=== PATIENT | male | born 1960 | race Caucasian/White ===

== ENCOUNTER 2023-10-13 08:20 | Outpatient (CLI) | payer BC ==
[2023-10-13 10:12] LABS: #Basophils 0.1 10x3/uL (0.0-0.2); #Eosinphils 0.2 10x3/uL (0.0-0.5); #Monocytes 0.6 10x3/uL (0.0-1.1); #Neutrophils 3.2 10x3/uL (1.5-8.4); %Basophils 1.1 % (0.0-2.0); %Lymphocytes 35.3 % (18.0-47.0); %Monocytes 9.6 % (0.0-10.0); %Neutrophils 50.7 % (40.0-75.0); Hematocrit 42.7 % (38.8-50.0); Hemoglobin 14.6 g/dL (13.5-17.5); Mean Corpuscular HGB CONC 34.2 g/dL (32.0-36.0); Mean Corpuscular Hemoglobin 30.7 pg (27.0-33.0); Mean Corpuscular Volume 89.7 fl (81.2-95.1); Mean Platelet Volume 9.6 fl (7.4-10.4); Platelet Count 242 10x3/uL (150-450); RBC Distribution Width 13.1 % (11.5-14.5); Red Blood Cell (RBC) Count 4.76 10x6/uL (4.32-5.72); White Blood Cell (WBC) Count 6.2 10x3/uL (3.5-10.5)
[2023-10-13 10:14] LABS: ALT (SGPT) 29 U/L (8-55); AST (SGOT) 32 U/L (5-34); Albumin 4.1 g/dL (3.4-4.8); Alkaline Phosphatase 82 U/L (40-110); Anion Gap 14 mmol/L (10-20); BUN (Urea Nitrogen) 14 mg/dL (8.4-25.7); Bilirubin, Total 0.4 mg/dL (0.2-1.2); Calc. Creatinine Clearance 0 mL/min (70-130); Calcium 9.1 mg/dL (7.8-10.44); Carbon Dioxide 21 mmol/L (23-31); Chloride 107 mmol/L (98-107); Estimated GFR 97; Globulin 2.3 g/dL (2.4-3.5); Glucose 170 mg/dL (80-115); Potassium 4.4 mmol/L (3.5-5.1); Protein, Total 6.4 g/dL (5.8-8.1); Sodium 138 mmol/L (136-145)
== END 2023-10-13 08:21 | disposition home or self-care (01) ==
LOC: LABBT 08:20
PROVIDERS: ATTEND Surgery
DX: Z01.818 Encounter for other preprocedural examination (principal); K42.9 Umbilical hernia without obstruction or gangrene
CPT/HCPCS: 80053; 85025; 93005; 93010

== ENCOUNTER 2023-10-20 06:45 | Day surgery (SDC) | payer BC ==
[2023-10-13 08:42] VITALS: BMI 38.5
[2023-10-20] MEDS ORDERED: CEFAZOLIN 2 GM VIAL ONE (08:11)
[2023-10-20] MEDS ORDERED: Sodium Chloride 0.9% 100 ML ONE (08:11)
[2023-10-20] MEDS ORDERED: Lidocaine 1% MPF 2 ML VIAL ONE (08:11)
[2023-10-20] MEDS ORDERED: Bupivacaine PF 0.5% 30 ML VIAL ONE (09:09)
[2023-10-20] MEDS ORDERED: EPINEPHrine 1 MG/ML VIAL ONE (09:09)
[2023-10-20] MEDS ORDERED: PROPOFOL 20 ML ONE (09:12)
[2023-10-20] MEDS ORDERED: fentaNYL PF 100 MCG/2 ML SYRINGE ONE (09:12)
[2023-10-20] MEDS ORDERED: Lidocaine 1% PF 5 ML VIAL ONE ×2 (09:12→10:05)
[2023-10-20] MEDS ORDERED: Rocuronium Bromide 10 MG/ML (10ML VIAL) ONE ×2 (09:12→10:05)
[2023-10-20] MEDS ORDERED: Midazolam HCl 2 mg/2 ml Vial ONE (09:47)
[2023-10-20] MEDS ORDERED: PROPOFOL 200 MG/20 ML VIAL ONE (10:05)
[2023-10-20] MEDS ORDERED: Ondansetron PF 4 MG/2 ML Vial ONE ×2 (10:05→10:29)
[2023-10-20] MEDS ORDERED: Dexamethasone 20 MG/5 ML VIAL ONE (10:05)
[2023-10-20] MEDS ORDERED: ePHEDrine Sulfate 50 MG/10 ML VIAL ONE ×2 (10:05→10:20)
[2023-10-20] MEDS ORDERED: Ketorolac Tromethamine 30 MG/ML VIAL ONE ×2 (10:05→10:29)
[2023-10-20] MEDS ORDERED: Dexamethasone 4 mg/ml Vial ONE (10:29)
[2023-10-20] MEDS ORDERED: SUGAMMADEX SODIUM 200 MG/2 ML VIAL ONE (10:37)
[2023-10-20] MEDS ORDERED: fentaNYL 50 mcg/mL 1 mL Vial ONE ×2 (11:12→11:26)
[2023-10-20] MEDS ORDERED: HYDROcodone/Acetaminophen 5/325 mg Tablet ONE (12:05)
== END 2023-10-20 12:50 | disposition home or self-care (01) ==
LOC: SDC 06:45
PROVIDERS: ATTEND Surgery
PROC: 0WQF0ZZ Repair Abdominal Wall, Open Approach (ICD-10-PCS; principal; 2023-10-20)
DX: K42.9 Umbilical hernia without obstruction or gangrene (principal); I10 Essential (primary) hypertension; H81.09 Meniere's disease, unspecified ear; Z87.891 Personal history of nicotine dependence; Z79.84 Long term (current) use of oral hypoglycemic drugs; Z79.899 Other long term (current) drug therapy
CPT/HCPCS: C1781; J0171; J1100; J1885; J2250; J2405; J2704; J3010; J3490; S0020